=== PATIENT | female | born 1995 | race Caucasian/White ===

== ENCOUNTER 2025-03-02 15:41 | Outpatient (CLI) | payer OTHER, SELFPAY ==
[2025-03-02 18:23] LABS: Hematocrit 37.3 % (37.0-47.0); Hemoglobin 12.2 g/dL (12.0-15.0); Immature Granulocyte Percent A 0.4 % (0-0.5); Lymphocytes Absolute Auto 2.49 K/mm3 (0.9-3.2); Mean Corpuscular HGB Conc 32.7 g/dl (32-36); Mean Corpuscular Hemoglobin 30.3 pg (26-34); Mean Corpuscular Volume 92.8 fl (80-100); Nucleated Red Blood Cells Absolute Auto 0.000 K/mm3 (0.0-0.012); Nucleated Red Blood Cells Perc 0.0 % (0.0-0.2); Platelet Count Result 232 k/mm3 (150-375); Red Blood Count 4.02 M/mm3 (4.2-5.4); White Blood Count 7.5 K/mm3 (4.5-10.0)
[2025-03-02 19:20] LABS: Syphilis IgG/IgM Antibody Non-Reactive (Nonreactive)
[2025-03-02 19:26] LABS: Hepatitis B Surface Antigen Negative (Negative)
[2025-03-02 19:41] LABS: Beta HCG Quantitative 60434.00 mIU/ML
[2025-03-02 20:39] LABS: HIV 1/2 Ab P24 Ag Result Negative (Negative)
[2025-03-03 09:09] LABS: Cytomegalovirus (CMV) Ab, IgG <0.60 U/mL (0.00-0.59)
[2025-03-03 15:09] LABS: Varicella-Zoster Ab, IgM <0.91 index (0.00-0.90)
[2025-03-05 13:08] LABS: Parvovirus B19, IgG 0.4 index (0.0-0.8); Parvovirus B19, IgM 0.5 index (0.0-0.8)
== END 2025-03-02 15:42 | disposition home or self-care (01) ==
LOC: ANHGOSHLAB 15:42
PROVIDERS: Visit Provider Obstetrics & Gynecology
DX: N91.2 Amenorrhea, unspecified (principal)
CPT/HCPCS: 36415; 84702; 85025; 86593; 86644; 86703; 86747; 86762; 86787; 86850; 86900; 86901; 87086; 87340; G0432

== ENCOUNTER 2025-04-04 12:54 | Emergency (ER) | payer OTHER, SELFPAY ==
[2025-04-04 12:55] VITALS: BP 119/79; PULSE 95; RESP 16; TEMP 36.4; O2SAT 100
--- NOTE | 2025-04-04 16:45 | ED_ITS ---
HPI - Skin/Abscess/Foreign Bdy General Chief complaint: Skin/Abscess/Foreign Body Stated complaint: BUTT CYST Time Seen by Provider: 04/04/25 14:07 History of Present Illness HPI narrative: Patient is a 29-year-old female who presents to the ER with tailbone pain. She reports she 1st noticed the pain on , 3 days ago. Patient reports the area has become red and inflamed. Her is a dentist so he prescribed her Augmentin, which she started 2 days ago. Patient reports the site has become more painful. She also endorses she is 11 weeks . Patient denies any recent fevers, urinary symptoms, rectal pain, or back pain. She denies any medical history relevant to this ER visit. Related Data Home Medications ?Medication ?Instructions ?Recorded ?Confirmed ?Last Taken ?Type mv-mn 115-folic 180 mcg-om3 35 tablet PO 03/02/2501/15 Unknown History mg-dha 25 mg-epa 5 mg-fish chew tablet (Centrum ) doxylamine succinate 25 mg tablet 25 mg PO QHS PRN 01/1503/30/25 Unknown History (Unisom (doxylamine)) pyridoxine (vitamin B6) 25 mg 25 mg PO DAILY 03/30/25 03/30/25 Unknown History tablet Allergies Allergy/AdvReac Type Severity Reaction Status Date / Time No Known Allergies Allergy Verified 04/04/25 12:54 Review of Systems Review of Systems: All systems reviewed & are unremarkable except as noted in HPI and below PMFSH Family History Family History Father Diabetes mellitus Social History Social History Smoking status: Never smoker Second hand tobacco smoke exposure: No Alcohol intake: former Drinks per week: 2 Substance use: never Substance use type: does not use Do You Feel Safe in your Home?: Yes Lack of Transportation: No Lack of Food: Never True Current Housing: Decline to Answer Concerned About Future Housing: Decline to Answer Difficulty Paying Gas/Electric Bills: Decline to Answer Difficulty Paying for Meds: Decline to Answer Currently Unemployed: Decline to Answer Education: Decline to Answer Difficulty w/ Childcare or Family Care: Decline to Answer Living arrangements: with family Additional living arrangements comments: 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 HEAD: Normocephalic, atraumatic. NECK: Supple. No adenopathy, no masses. RESPIRATORY: Airway patent, respirations nonlabored. Clear to auscultation bilaterally, no rales, rhonchi, wheezing. CARDIOVASCULAR: Regular rate and rhythm without murmurs, rubs, or gallops. Peripheral pulses 2+ and equal bilaterally. ABDOMINAL: Soft, nontender, nondistended, no hepatosplenomegaly. Normoactive BS. MUSCULOSKELETAL: Moves all extremities. Strength/ROM intact without gross deformities. SKIN: Warm, dry, normal color. No rashes. Approximately quarter-size palpable red swelling to in her right buttocks, no visible drainage, palpable area of induration. NEURO: A&O X3. Speech clear. Cranial nerves II-XII intact. No ataxic movements. PSYCHIATRIC: Appropriate mood and affect. Normal interaction. Course Vital Signs Vital signs: Vital Signs Temperature 36.4 C L 04/04/25 12:55 Pulse Rate 95 04/04/25 12:55 Respiratory Rate 16 04/04/25 12:55 Blood Pressure 119/79 04/04/25 12:55 Pulse Oximetry 100 04/04/25 12:55 Oxygen Delivery Room Air 04/04/25 12:55 Temperature 36.4 C L 04/04/25 12:55 Pulse Rate 95 04/04/25 12:55 Respiratory Rate 16 04/04/25 12:55 Blood Pressure 119/79 04/04/25 12:55 Pulse Oximetry 100 04/04/25 12:55 Oxygen Delivery Room Air 04/04/25 12:55 Procedures Abscess I/D other: Date of Incision: 04/04/25 Time of Incision: 16:52 Side (if applicable): right Local Anesthetic: lidocaine 1% and with epi Amount of anesthesia used (mL): 5 Technique: incised with #11 blade and probed loculations Amount of fluid expressed (mL): 5 Irrigation: Yes Packing used?: iodoform I&D Results: Pus MDM - Skin/Abscess/Foreign Bdy MDM Narrative Medical decision making narrative: Patient is a 29-year-old female who presents to the ER with tailbone pain. She reports she 1st noticed the pain on , 3 days ago. Patient reports the area has become red and inflamed. Her is a dentist so he prescribed her Augmentin, which she started 2 days ago. Patient reports the site has become more painful. She also endorses she is 11 weeks . Patient denies any recent fevers, urinary symptoms, rectal pain, or back pain. She denies any medical history relevant to this ER visit. Medications Ordered: Lidocaine 1% with epi Diagnosis: Pilonidal cyst Patient Education/Shared MDM: Results of examination shared with patient. She endorses improvement of symptoms following lidocaine administration. Patient is already on Augmentin and was advised to continue this medication to completion. She may take Tylenol at home for pain control. Patient strongly advised to follow-up with their PCP as soon as possible for wound re-evaluation. She will not be discharged home with any new medications. Strict return precautions provided. Patient verbalized understanding and is in agreement with plan. Vital signs stable at time of discharge. All questions answered. Differential Diagnosis Differential diagnosis: Likely abscess of skin or subcutaneous tissue, cellulitis, contact dermatitis and other (Pilonidal cyst) Discharge Plan Discharge Clinical Impression: Abscess of skin or subcutaneous tissue, Infected pilonidal cyst Patient Disposition: Home Condition: Stable Instructions: Antibiotic Form, Abscess (ED) Additional Instructions: Please return to the ER with any worsening symptoms. Follow-up with primary care provider in the next 2-3 days to ensure wound healing. Please complete your full dose of antibiotic. You may take Tylenol as needed for pain control. Patient Language: Mongolian Prescriptions: No Action Centrum 180 mcg-35 mg- 25 mg-5 mg tablet,chewable PO pyridoxine (vitamin B6) 25 mg tablet 25 mg PO DAILY Unisom (doxylamine) 25 mg tablet 25 mg PO QHS PRN metoclopramide HCl [Reglan] 10 mg tablet 10 mg PO Q6H PRN (Reason: nausea and vomiting) Qty: 20 2RF Follow-up/Referrals: Jason Bates MD [Physician, Family Practice] Referral Note: primary care PHYSICIAN,[employer]ON[employer]ATOR [Primary Care Provider, Internal Medicine] Stand Alone Forms: Work/School Release IP Time of Disposition: 16:50
[2025-04-04 17:23] VITALS: BP 120/76; PULSE 88; RESP 18; O2SAT 99
== END 2025-04-04 17:24 | disposition home or self-care (01) ==
PROVIDERS: Emergency Provider Registered Nurse
DX: O99.711 Diseases of the skin and subcutaneous tissue complicating pregnancy, first trimester (principal); L05.91 Pilonidal cyst without abscess; Z3A.11 11 weeks gestation of pregnancy
CPT/HCPCS: 10080; 99283